=== PATIENT | female | born 1965 | race Caucasian/White ===

== ENCOUNTER 2016-11-02 10:06 | Outpatient (CLI) | payer MEDICAID | END 2016-11-02 10:07 | disposition home or self-care (01) | DX: J22 Unspecified acute lower respiratory infection (principal) ==

== ENCOUNTER 2017-03-28 16:35 | Outpatient (CLI) | payer MEDICAID | END 2017-03-28 16:36 | disposition home or self-care (01) | LOC: LAB.R 16:35 | PROVIDERS: ATTEND Family Medicine | DX: L02.415 Cutaneous abscess of right lower limb (principal) ==

== ENCOUNTER 2017-05-07 09:00 | Outpatient (CLI) | payer MEDICAID | END 2017-05-07 09:15 | disposition home or self-care (01) | LOC: RT.N 09:00 | PROVIDERS: ATTEND Family Medicine | DX: R07.9 Chest pain, unspecified (principal) | CPT/HCPCS: 93005 ==

== ENCOUNTER 2017-06-24 11:17 | Outpatient (CLI) | payer MEDICAID ==
[2017-06-24 12:34] LABS: BASOPHILS # (AUTO) 0.1 10^3/uL (0.0-0.1); BASOPHILS % (AUTO) 1.7 %; EOSINOPHILS # (AUTO) 0.3 10^3/uL (0.0-0.7); EOSINOPHILS % (AUTO) 3.9 %; HCT - HEMATOCRIT 39.4 % (37.0-47.0); HGB - HEMOGLOBIN 13.6 g/dL (12.0-16.0); LYMPHOCYTES # (AUTO) 2.6 10^3/uL (1.5-3.5); LYMPHOCYTES % (AUTO) 35.2 %; MEAN CORPUSCULAR HEMOGLOBIN 32.8 pg (27.0-31.0); MEAN CORPUSCULAR HGB CONC 34.7 g/dL (32.0-36.0); MEAN CORPUSCULAR VOLUME 94.6 fL (81.0-99.0); MONOCYTES # (AUTO) 0.5 10^3/uL (0.0-1.0); MONOCYTES % (AUTO) 7.4 %; NEUTROPHILS # (AUTO) 3.8 10^3/uL (1.5-6.6); NEUTROPHILS % (AUTO) 51.8 %; NUCLEATED RED BLOOD CELLS AUTO 0.1 /100WBC; RED BLOOD COUNT 4.16 10^6/uL (4.20-5.40); RED CELL DISTRIBUTION WIDTH 13.5 % (12.0-15.0); UNCORRECTED WHITE BLOOD COUNT 7.3 x10^3/uL; WHITE BLOOD COUNT 7.3 x10^3/uL (4.8-10.8)
[2017-06-24 12:56] LABS: ALBUMIN/GLOBULIN RATIO 1.5 (1.0-2.2); BILIRUBIN,TOTAL 0.5 mg/dL (0.2-1.0); CREATININE 0.7 mg/dL (0.4-1.0); POTASSIUM 3.9 mmol/L (3.5-5.0)
== END 2017-06-24 11:18 | disposition home or self-care (01) ==
LOC: LAB.N 11:17
PROVIDERS: ATTEND Family Medicine
DX: L02.415 Cutaneous abscess of right lower limb (principal); Z86.14 Personal history of Methicillin resistant Staphylococcus aureus infection
CPT/HCPCS: 36415; 80053; 85025; 85651

== ENCOUNTER 2018-06-24 13:04 | Emergency (ER) | payer MEDICAID, OTHER ==
[2018-06-24 13:23] VITALS: BP 110/70
--- NOTE | 2018-06-24 14:47 | ED Physician Documentation ---
PD HPI UPPER EXT INJURY - Stated complaint Stated Complaint: ELBOW PX - Chief complaint Chief Complaint: Ext Problem - History obtained from History obtained from: Patient - History of Present Illness Location: Left, Elbow, Forearm Where injury occurred: Work Timing - onset: Today Timing - duration: Days (has had some pains at elbow and forearm while) Timing - details: Abrupt onset (she had had some pains at elbow/forearm at work with wringing motion of mops. 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 HEENT: Tonsil/Adenoidectomy - Present Medications Home Medications: Ambulatory Orders Medication Instructions Recorded Confirmed Dexamethasone [Decadron] 4 mg PO DAILY #5 tablet 06/24/18 Hydrocodone/Acetaminophen [[place] 1 each PO Q6H PRN #15 tablet 06/24/18 5-325 Tablet] Naproxen 375 mg PO BID #20 tablet 06/24/18 - Allergies Allergies/Adverse Reactions: Allergies Allergy/AdvReac Type Severity Reaction Status Date / Time ciprofloxacin [From Cipro] Allergy Unknown Verified 06/24/18 14:39 ciprofloxacin HCl * Allergy Unknown Verified 06/24/18 14:39 [From Cipro] hydromorphone [From Dilaudid] Allergy Unknown Verified 06/24/18 14:39 - Social History Does the pt smoke?: Yes Smoking Status: Current some day smoker Does the pt drink ETOH?: No Does the pt have substance abuse?: Yes Substance Use and Type: Marijuana - Immunizations Immunizations are current?: Yes - POLST Patient has POLST: No PD ED PE NORMAL - Vitals Vital signs reviewed: Yes - General General: Alert and oriented X 3, Well developed/nourished - Derm Derm: Normal color, Warm and dry, No rash - Extremities Extremities: Other (left elbow tender at lateral condyle, without redness. Tender in forearm dorsal muscle as well. Pain with supination. ) - Neuro Neuro: Alert and oriented X 3, No motor deficit, No sensory deficit Results - Vitals Vitals: Vital Signs - 24 hr 06/24/18 13:16 Temperature 36.3 C L Heart Rate 80 Respiratory 16 Rate Blood Pressure 110/70 O2 Saturation 97 Oxygen O2 Source Room air PD MEDICAL DECISION MAKING - ED course Complexity details: considered differential (epicondylitis with likely some partial muscle/tendon disruption today. Still able to move in supination/pronation movements though hurts. ), d/w patient Departure - Departure Disposition: 01 Home, Self Care Clinical Impression: Epicondylitis, lateral (tennis elbow) Qualifiers: Laterality: left Qualified Code(s): M77.12 - Lateral epicondylitis, left elbow Condition: Stable Record reviewed to determine appropriate education?: Yes Instructions: ED Epicondylitis Lateral Elbow Follow-Up: Pankaj Wooten MD [Primary Care Provider] - [facility] [Provider Group] Prescriptions: Dexamethasone [Decadron] 4 mg PO DAILY #5 tablet Hydrocodone/Acetaminophen [[place] 5-325 Tablet] 1 each PO Q6H PRN #15 tablet PRN Reason: Pain Naproxen 375 mg PO BID #20 tablet Comments: This sounds like tennis elbow tendinitis with likely some mild tear of the muscle giving the abrupt pain you had today. Use your forearm band that you have. Use a sling to decrease motion and rest the forearm and elbow often over the next 5 or 6 days. Use naproxen twice daily for the next 7-10 days. Decadron steroid anti-inflammatory daily for 5 more days. Add Tylenol or hydrocodone if needed for pain. Follow-up with orthopedics if not improved over the next week. Limited duty use with that arm. Forms: Activity restrictions Discharge Date/Time: 06/24/18 15:41
[2018-06-24] MEDS: HYDROcod/ACETAM 5/325 MG TABLET PO STA (15:25)
[2018-06-24] MEDS: NAPROXEN 250 MG TABLET PO STA (15:25)
[2018-06-24] MEDS: DEXAMETHASONE 10 MG/ML VIAL PO STA (15:25)
== END 2018-06-24 15:41 | disposition home or self-care (01) ==
LOC: ED 13:04
DX: M77.12 Lateral epicondylitis, left elbow (principal); X50.9XXA Other and unspecified overexertion or strenuous movements or postures, initial encounter; Y99.0 Civilian activity done for income or pay
CPT/HCPCS: 1040M; 99283

== ENCOUNTER 2019-09-11 07:47 | Outpatient (CLI) | payer MEDICAID, OTHER ==
[2019-09-11 11:51] LABS: BASOPHILS # (AUTO) 0.2 10^3/uL (0.0-0.1); BASOPHILS % (AUTO) 1.8 %; EOSINOPHILS # (AUTO) 0.4 10^3/uL (0.0-0.7); EOSINOPHILS % (AUTO) 3.8 %; HGB - HEMOGLOBIN 14.8 g/dL (12.0-16.0); LYMPHOCYTES # (AUTO) 3.7 10^3/uL (1.5-3.5); LYMPHOCYTES % (AUTO) 38.5 %; MEAN CORPUSCULAR HEMOGLOBIN 31.7 pg (27.0-31.0); MEAN CORPUSCULAR HGB CONC 32.2 g/dL (32.0-36.0); MEAN CORPUSCULAR VOLUME 98.5 fL (81.0-99.0); MEAN PLATELET VOLUME 12.1 fL (7.9-10.8); MONOCYTES # (AUTO) 0.7 10^3/uL (0.0-1.0); NEUTROPHILS # (AUTO) 4.7 10^3/uL (1.5-6.6); NEUTROPHILS % (AUTO) 48.6 %; PLT - PLATELET COUNT 288 10^3/uL (130-450); RED BLOOD COUNT 4.67 10^6/uL (4.20-5.40); RED CELL DISTRIBUTION WIDTH 13.3 % (12.0-15.0); WHITE BLOOD COUNT 9.7 x10^3/uL (4.8-10.8)
[2019-09-11 12:19] LABS: BUN - BLOOD UREA NITROGEN 10 mg/dL (6-20); CARBON DIOXIDE - CO2 25 mmol/L (21-32); CHLORIDE 108 mmol/L (101-111); CHOL/HDL RATIO 5.6 (<4.4); CHOLESTEROL 202 mg/dL; CREATININE 0.8 mg/dL (0.4-1.0); GFR - MDRD 75 (>89); GLUCOSE 102 mg/dL (70-100); HDL CHOLESTEROL 36 mg/dL; LDL CHOLESTEROL,CALCULATED 98 mg/dL; LDL/HDL RATIO 2.7 (<4.4); SODIUM 141 mmol/L (135-145); VLDL CHOLESTEROL 68 mg/dL
== END 2019-09-11 23:59 | disposition home or self-care (01) ==
LOC: LAB.N 07:47
PROVIDERS: ATTEND Physician Assistant Medical
DX: G43.409 Hemiplegic migraine, not intractable, without status migrainosus (principal)
CPT/HCPCS: 36415; 80048; 80061; 83721; 84443; 85025

== ENCOUNTER 2023-10-09 12:13 | Outpatient (CLI) | payer SELFPAY | END 2023-10-09 12:14 | disposition critical access hospital (66) | LOC: EMS 12:13 | DX: R07.9 Chest pain, unspecified (principal) | CPT/HCPCS: A0425; A0429 ==

== ENCOUNTER 2023-10-09 12:34 | Emergency (ER) | payer SELFPAY ==
[2023-10-09 13:09] LABS: BASOPHILS # (AUTO) 0.1 10^3/uL (0.0-0.1); BASOPHILS % (AUTO) 0.9 %; EOSINOPHILS # (AUTO) 0.1 10^3/uL (0.0-0.7); HCT - HEMATOCRIT 45.8 % (37.0-47.0); LYMPHOCYTES # (AUTO) 3.7 10^3/uL (1.5-3.5); LYMPHOCYTES % (AUTO) 31.9 %; MEAN CORPUSCULAR HEMOGLOBIN 31.4 pg (27.0-31.0); MEAN CORPUSCULAR HGB CONC 32.8 g/dL (32.0-36.0); MEAN CORPUSCULAR VOLUME 95.8 fL (81.0-99.0); MONOCYTES # (AUTO) 0.6 10^3/uL (0.0-1.0); MONOCYTES % (AUTO) 4.7 %; NEUTROPHILS # (AUTO) 7.1 10^3/uL (1.5-6.6); NEUTROPHILS % (AUTO) 61.2 %; PLT - PLATELET COUNT 270 10^3/uL (130-450); RED BLOOD COUNT 4.78 10^6/uL (4.20-5.40); RED CELL DISTRIBUTION WIDTH 13.1 % (12.0-15.0); WHITE BLOOD COUNT 11.7 x10^3/uL (4.8-10.8)
[2023-10-09 13:27] LABS: ALBUMIN 4.2 g/dL (3.2-5.5); ALBUMIN/GLOBULIN RATIO 1.6 (1.0-2.2); ALKALINE PHOSPHATASE 99 IU/L (42-121); ALT ALANINE AMINOTRANSFERASE 29 IU/L (10-60); AST ASPARTATE AMINOTRANSFERASE 23 IU/L (10-42); BILIRUBIN,TOTAL 0.4 mg/dL (0.2-1.0); BUN - BLOOD UREA NITROGEN 9 mg/dL (6-20); CALCIUM 9.7 mg/dL (8.5-10.3); CARBON DIOXIDE - CO2 24 mmol/L (21-32); CHLORIDE 109 mmol/L (101-111); CREATININE 0.9 mg/dL (0.6-1.3); GFR - MDRD 65 (>89); GLUCOSE 146 mg/dL (74-104); LIPASE 47 U/L (11-82); POTASSIUM 3.7 mmol/L (3.5-4.5); SODIUM 139 mmol/L (135-145); TOTAL PROTEIN 6.9 g/dL (6.4-8.9)
[2023-10-09 13:33] LABS: TROPONIN I HIGH SENSITIVITY < 2.3 ng/L (2.3-14.8)
[2023-10-09] MEDS: SODIUM CHLORIDE 0.9% 1,000 ML IV STA (13:47)
[2023-10-09] MEDS: fentaNYL 100 MCG/2 ML VIAL IVP STA (13:49)
[2023-10-09] MEDS: ONDANSETRON 4 MG/2 ML VIAL IVP STA (13:52)
--- NOTE | 2023-10-09 14:52 | XRAY Report ---
PROCEDURE: Chest 1V INDICATIONS: Chest pain TECHNIQUE: One view of the chest was acquired. COMPARISON: None. FINDINGS: Surgical changes and devices: None. Lungs and pleura: Mildly prominent interstitium. No dense consolidation or pleural effusion. Mediastinum: Heart size is at the upper lateral normal. Bones and chest wall: Degenerative changes. IMPRESSION: Mildly prominent interstitium could represent edema or atypical infection. Consider future imaging figueroa rveillance to assess for resolution. Limited single view portable radiograph. Reviewed by: Bronson Franco MD on 10/09/2023 2:51 PM PST Approved by: Bronson Franco MD on 10/09/2023 2:51 PM PST Station ID: [id number]
--- NOTE | 2023-10-09 17:18 | CT Report ---
PROCEDURE: Angio Chest INDICATIONS: Chest pain, elevated dimer CONTRAST: Opti 320 100ml TECHNIQUE: After the administration of intravenous contrast, 2 mm axial images were acquired from the pulmonary apices to the posterior costophrenic angles during the arterial phase. In addition, 1 mm lung kernel and 5 mm soft tissue kernel reconstructions were performed. 3-dimensional coronal oblique maximum int ensity projection (MIP) reformats, 8 mm axial MIP, and 5 mm coronal and sagittal MPR reformats were t hen performed through the thorax. For radiation dose reduction, the following was used: automated exp osure control, adjustment of mA and/or kV according to patient size. COMPARISON: Correlation is made with the accompanying imaging. FINDINGS: Image quality: Excellent. Large vessels: No filling defects within the opacified pulmonary arteries, accounting for motion and contrast timing. No evidence of acute aortic syndrome or aortic aneurysm. Lungs and pleura: Mild dependent atelectasis is seen. No concerning infiltrate can be seen. No pleura l effusions. No pneumothorax. No suspicious pulmonary nodules which require follow up. Mediastinum: Heart size is normal. No pericardial effusion. No large vessel abnormality. No mediastin al adenopathy by size criteria. Chest wall and lower neck: Thyroid is unremarkable. No axillary or supraclavicular adenopathy by size . Bones: No aggressive osseous abnormality. Upper Abdomen: Unremarkable. IMPRESSION: No pulmonary embolus. No significant pulmonary abnormality is seen. Reviewed by: Mahin Seymour MD on 10/09/2023 4:17 PM [facility] Approved by: Mahin Seymour MD on 10/09/2023 4:17 PM [facility] Station ID: [id number]
--- NOTE | 2023-10-09 17:20 | CT Report ---
PROCEDURE: Abdomen/Pelvis W INDICATIONS: epigastric abd pain CONTRAST: Opti 320 100ml TECHNIQUE: After the administration of intravenous contrast, a CT scan of the abdomen and pelvis was performed. Images were recorded and evaluated at appropriate window settings. Reformats: coronal and sagittal. F or radiation dose reduction, the following was used: automated exposure control, adjustment of mA and /or kV according to patient size. COMPARISON: Correlation is made with the accompanying imaging. FINDINGS: Image quality: Diagnostic. Lower chest: Unremarkable. Liver: No solid mass. Diffuse fatty liver infiltration can be seen. Gallbladder and biliary tree: Within normal limits. Spleen: No splenomegaly. Pancreas: No pancreatic ductal dilation. Adrenals: No adrenal nodule. Kidneys and ureters: No hydronephrosis. No renal cystic lesion which requires follow up. No solid mas s. Stomach, bowel and peritoneum: No bowel distension. The colon is largely collapsed at the time of thi s study. The stomach is relatively decompressed at the time of this study, limiting its evaluation. No pathologic free fluid. A normal appendix is seen. No focal right lower quadrant inflammatory curtis e is seen. Lymph nodes: No central or retroperitoneal adenopathy. Vessels: No infrarenal aortic aneurysm. PELVIS Reproductive organs: The uterus demonstrates an unremarkable appearance for age. No adnexal masses ar e seen. Bladder: No abnormal wall thickening, accounting for underdistention. Pelvic lymph nodes: No pelvic adenopathy by size criteria. Bones: No aggressive osseous abnormality. Focal L4-L5 degenerative change is seen. Milder degenerativ e changes are seen elsewhere. Mild levoconvex scoliotic curvature is seen. Other: There is a minimal periumbilical hernia seen, containing fat. IMPRESSION: No cause of epigastric pain is identified on these images. Additional findings: Fatty liver infiltration Minimal fat-containing periumbilical hernia Normal appendix Focal L4-L5 degenerative change Reviewed by: Mahin Seymour MD on 10/09/2023 4:19 PM [place] Approved by: Mahin Semyour MD on 10/09/2023 4:19 PM [place] Station ID: [id number]
--- NOTE | 2023-10-09 17:35 | ED Physician Documentation ---
History of Present Illness - Stated complaint Stated Complaint: CHEST PX - Chief complaint Chief Complaint: Cardiac - Additonal information Additional information: Patient 58-year-old female presenting to the emergency department with chest tightness and epigastric abdominal pain. Reports has been having cough, congestion ongoing for the last 3 weeks with associated chest tightness. Chest tightness has been steady and constant over that time. She does endorse for similar episodes of chest tightness associated with bronchitis in the past. She does endorse for active smoking. Denies for any fever. This afternoon she had an episode of epigastric abdominal pain associated with nausea vomiting. She also reports feeling diaphoretic and lightheaded at that time. Currently reports feeling the persistent chest tightness but denies any other symptoms. 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 HEENT: Tonsil/Adenoidectomy - Present Medications Home Medications: Ambulatory Orders Medication Instructions Recorded Confirmed Hydrocodone/Acetaminophen [[place] 1 each PO Q6H PRN #15 tablet 06/24/18 5-325 Tablet] Naproxen 375 mg PO BID #20 tablet 06/24/18 dexAMETHasone [Decadron] 4 mg PO DAILY #5 tablet 06/24/18 Omeprazole 40 mg PO DAILY #30 cap 10/09/23 Ondansetron Odt [Zofran] 4 mg TL Q6H PRN #10 tablet 10/09/23 predniSONE [Deltasone] 40 mg PO DAILY #10 tablet 10/09/23 - Allergies Allergies/Adverse Reactions: Allergies Allergy/AdvReac Type Severity Reaction Status Date / Time ciprofloxacin [From Cipro] Allergy Unknown Verified 10/09/23 12:53 ciprofloxacin HCl * Allergy Unknown Verified 10/09/23 12:53 [From Cipro] hydromorphone [From Dilaudid] Allergy Unknown Verified 10/09/23 12:53 - Social History Does the pt smoke?: Yes Smoking Status: Current every day smoker Does the pt drink ETOH?: No Does the pt have substance abuse?: Yes - Immunizations Immunizations are current?: Yes - POLST Patient has POLST: No Results - Vitals Vitals: Vital Signs - 24 hr 10/09/23 10/09/23 10/09/23 12:49 14:53 16:00 Temperature 36.4 C L Heart Rate 61 70 75 Respiratory 17 15 26 H Rate Blood Pressure 140/95 H 119/79 133/85 H O2 Saturation 97 95 95 Oxygen O2 Source Room air - EKG (time done) 1313 EKG releavant findings:: EKG personally interpreted by author of this note. Relevant findings are: Sinus rhythm with rate 73 bpm. Normal axis. Normal [place], QRS, QTc intervals. No ST segment elevations. Nonspecific ST-T wave abnormalities. No significant change in comparison to previous October 08. Of note computer interpretation A-fib erroneous. Clear P wave activity is identified in multiple leads. - Labs Labs: Laboratory Tests 10/09/23 10/09/23 10/09/23 13:04 13:04 13:04 WBC 11.7 H RBC 4.78 Hgb 15.0 Hct 45.8 MCV 95.8 MCH 31.4 H MCHC 32.8 RDW 13.1 Plt Count 270 MPV 11.0 H Neut # (Auto) 7.1 H Lymph # (Auto) 3.7 H [place] # (Auto) 0.6 Eos # (Auto) 0.1 Baso # (Auto) 0.1 Absolute Nucleated RBC 0.00 Nucleated RBC % 0.0 D-Dimer 255.1 H Sodium 139 Potassium 3.7 Chloride 109 Carbon Dioxide 24 Anion Gap 6.0 BUN 9 Creatinine 0.9 Estimated GFR (MDRD) 65 L Glucose 146 H Calcium 9.7 Magnesium Total Bilirubin 0.4 AST 23 ALT 29 Alkaline Phosphatase 99 Troponin I High Sens < 2.3 L Total Protein 6.9 Albumin 4.2 Globulin 2.7 Albumin/Globulin Ratio 1.6 Lipase 47 10/09/23 10/09/23 13:04 15:20 WBC RBC Hgb Hct MCV MCH MCHC RDW Plt Count MPV Neut # (Auto) Lymph # (Auto) [place] # (Auto) Eos # (Auto) Baso # (Auto) Absolute Nucleated RBC Nucleated RBC % D-Dimer Sodium Potassium Chloride Carbon Dioxide Anion Gap BUN Creatinine Estimated GFR (MDRD) Glucose Calcium Magnesium 1.8 Total Bilirubin AST ALT Alkaline Phosphatase Troponin I High Sens < 2.3 L Total Protein Albumin Globulin Albumin/Globulin Ratio Lipase PD Medical Decision Making - ED course Complexity details: reviewed old records, reviewed results, re-evaluated patient, considered differential, d/w patient ED course: Patient 58-year-old female presenting to the emergency department with chest tightness has been ongoing x 3 weeks as well as an episode of epigastric abdominal pain that was associated with nausea vomiting. Afebrile, hemodynamically stable on arrival to the emergency department. EKG demonstrates nonspecific ST-T wave abnormalities.Serial high-sensitivity troponins negative. The fact that her chest tightness has been persistent and ongoing x 3 weeks with undetectable serial high-sensitivity troponins is reassuring. She had a minimal elevation in D-dimer and I obtained a CTA of her chest which was negative for acute any thoracic pathology. CT of her abdomen pelvis was also negative for acute intra-abdominal pathology. Monitored in the emergency department for several hours with no new or worsening symptoms. Will discharge at this time with the medication for symptomatic management. Will encourage that she decrease or quit smoking. Will encourage prompt an immediate return to the emergency department for any further episodes of pain. Clear return precautions given prior to discharge. Departure - Departure Disposition: 01 Home, Self Care Clinical Impression: Chest tightness, Epigastric abdominal pain Nausea and vomiting Qualifiers: Vomiting type: unspecified Qualified Code(s): R11.2 - Nausea with vomiting, unspecified Instructions: ED Nausea Vomiting Prescriptions: predniSONE [Deltasone] 40 mg PO DAILY #10 tablet Omeprazole 40 mg PO DAILY #30 cap Ondansetron Odt [Zofran] 4 mg TL Q6H PRN #10 tablet PRN Reason: Nausea / Vomiting Comments: Thank you for allowing us to care for you today [facility]. Today in the emergency department you were evaluated for any possible dangerous or life-threatening medical emergency. The testing performed in the emergency department today overall was very reassuring. As we discussed had like you to begin an antiacid medication to be taken daily. This should be taken first thing in the morning on an empty stomach. Please abstain from nonsteroidal anti-inflammatory medications like ibuprofen or naproxen while on this medication. I have also written medication for nausea as well as a short course of prednisone. With your smoking history I do believe you are suffering from a at least modest case of bronchitis. He would benefit from working towards discontinuing quitting smoking entirely. While your evaluation in the emergency department today is reassuring this does represent only 1 snapshot in time. It is very important you follow-up with your primary care doctor for reevaluation in the next few days. It is also very important that if it anytime you have any new or worsening symptoms, particularly if you have any recurrent episodes of epigastric abdominal pain that you return to the emergency department immediately for reevaluation.
[2023-10-09] MEDS: PANTOPRAZOLE 40 MG VIAL IVP STA (17:40)
[2023-10-09 17:56] VITALS: BP 145/78; O2SAT 98
[2023-10-09] MEDS: IOVERSOL 320 100 ML VIAL IVP ONE (17:57)
== END 2023-10-09 17:51 | disposition home or self-care (01) ==
LOC: EDUNIT# → ED 12:34
DX: R07.9 Chest pain, unspecified (principal); R10.13 Epigastric pain; R11.2 Nausea with vomiting, unspecified; F17.200 Nicotine dependence, unspecified, uncomplicated
CPT/HCPCS: 36415; 71045; 71275; 74177; 80053; 83690; 83735; 84484; 85025; 85379; 93005; 96374; 96375; 99284; Q9967